=== PATIENT | female | born 1995 | race African-American/Black ===

== ENCOUNTER 2019-05-23 18:07 | Emergency (ER) | payer OTHER ==
[~2019-05-23] VITALS: Ht 167.6 cm; Wt 104.3 kg
[~2019-05-23 18:07] MED LIST: PROM25TA10 PO
[2019-05-23 18:20] VITALS: BP 157/73
[2019-05-23] MEDS ORDERED: HYDROcodone/APAP 5/325MG 1 TAB TABLET PO ONE (18:45)
[2019-05-23] MEDS ORDERED: CYCLOBENZAPRINE 10 MG TABLET. PO ONE (18:45)
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
[2019-05-23] MEDS ORDERED: DICL50TA2 PO (19:29)
[2019-05-23] MEDS ORDERED: CYCL10TA2 PO (19:29)
== END 2019-05-23 19:35 | disposition home or self-care (01) ==
LOC: ER 18:07
DX: S20.212A Contusion of left front wall of thorax, initial encounter (principal); R51 Headache; V49.49XA Driver injured in collision with other motor vehicles in traffic accident, initial encounter; Y93.89 Activity, other specified; Y92.488 Other paved roadways as the place of occurrence of the external cause; Y99.8 Other external cause status
CPT/HCPCS: 70450; 71046; 99284-25

== ENCOUNTER 2019-06-25 13:10 | Emergency (ER) | payer SELFPAY ==
[~2019-06-25] VITALS: Ht 167.6 cm; Wt 104.3 kg
[~2019-06-25 13:10] MED LIST changes: +CYCL10TA2 PO; +DICL50TA2 PO
[2019-06-25 13:31] VITALS: BP 132/74
--- NOTE | 2019-06-25 14:11 | PHYS DOC ---
Past Medical History Additional Past Medical Histor: HPV Past Surgical History: No Surgical History, Angioplasty Additional Past Surgical Histo: LEEP Alcohol Use: None Drug Use: None Adult General Chief Complaint Chief Complaint: COUGH HPI HPI Patient is a 23 year old female who presented to the emergency department, accompanied by her family member, with complaints of cold symptoms for the last week. Patient reported having a hoarse voice, a productive cough with yellow sputum, ear pain, and sore throat. She denied any dizziness, headache, rash, diarrhea, or abdominal pain. Patient stated that she did feel fatigued and reported that she had experienced posttussive emesis 3 in the last 4 days. She currently rates her pain a 5 out of 10 on the pain scale, she denies any alleviating or exacerbating factors. All other ROS is neg unless otherwise noted in HPI. Review of Systems Review of Systems See Above Allergies Allergies Allergies Coded Allergies Type Severity Reaction Last Updated Verified No Known Drug Allergies 08/25/13 No Physical Exam Physical Exam See Above Constitutional: Well developed, well nourished, no acute distress, non-toxic appearance. [] HENT: Normocephalic, atraumatic, bilateral external ears normal, oropharynx moist, no oral exudates, nose normal. [] Eyes: PERRLA, EOMI, conjunctiva normal, no discharge. [] Neck: Normal range of motion, no tenderness, supple, no stridor. [] Cardiovascular:Heart rate regular rhythm, no murmur [] Lungs & Thorax: Bilateral breath sounds clear to auscultation [] Skin: Warm, dry, no erythema, no rash. [] Back: No tenderness Extremities: No cyanosis, ROM intact, no edema. [] Neurologic: Alert and oriented X 3, no focal deficits noted. [] Psychologic: Affect normal, judgement normal, mood normal. [] Current Patient Data Vital Signs Vital Signs Date Time Temp Pulse Resp B/P (MAP) Pulse Ox O2 Delivery O2 Flow Rate FiO2 06/25/19 13:31 98.2 87 16 132/74 (93) 97 Room Air 98.2 EKG EKG [] Radiology/Procedures Radiology/Procedures [] Course & Med Decision Making Course & Med Decision Making Pertinent Labs and Imaging studies reviewed. (See chart for details) dx: medical screening exam A medical screening exam was performed, patient was found to have no emergent medical condition. The plan of care would've included URI instructions . However, the patient eloped after talking with registration. [] [] Dragon Disclaimer Dragon Disclaimer This electronic medical record was generated, in whole or in part, using a voice recognition dictation system. Departure Departure Impression: Primary Impression: Encounter for medical screening examination Disposition: HOME, SELF-CARE (eloped after speaking with registration) Condition: STABLE Referrals: NO PCP (PCP) ROBERT MALLOY [employer] Jun 25, 2019 14:11
== END 2019-06-25 14:19 | disposition home or self-care (01) ==
LOC: ER 13:10
DX: R05 Cough (principal); Z98.61 Coronary angioplasty status
CPT/HCPCS: 99281